=== PATIENT | male | born 1965 | race African-American/Black ===

== ENCOUNTER 2019-12-31 09:51 | Inpatient (IN) ==
[2019-12-31] MEDS ORDERED: GLUCAGON 1 MG VIAL IM PRN (10:19)
[2019-12-31] MEDS ORDERED: DEXTROSE 10% 250 ML BAG IV PRN (10:19)
[2019-12-31] MEDS ORDERED: ACETAMINOPHEN 325 MG TABLET PO PRN (10:19)
[2019-12-31] MEDS ORDERED: ONDANSETRON 4 MG/2 ML VIAL IV PRN (10:19)
[2019-12-31] MEDS ORDERED: MAGNESIUM HYDROXIDE SUSP 30 ML UDCUP PO PRN (10:19)
[2019-12-31] MEDS ORDERED: MEROPENEM 2,000 MG in SODIUM CHLORIDE 0.9% 100 ML IV SCH (10:30)
[2019-12-31] MEDS: INSULIN REGULAR 100 UNIT/ML SUBCUT SCH ×3 (11:30→20:26)
[2019-12-31 13:45] LABS: Basophils # 0.1 10*3/uL (0.0-0.2); Basophils % 0.4 % (0.0-0.8); Eosinophils # 0.2 10*3/uL (0.0-0.87); Eosinophils % 1.5 % (0.00-10.9); Hematocrit 41.7 VOL% (42.0-52.0); Hemoglobin 13.2 GM/DL (14.0-18.0); Immature Granulocytes % 0.8 %; Immature Granulocytes Absolute 0.11 #; Lymphocytes # 3.3 10*3/uL (1.4-4.0); Lymphocytes % 24.7 % (21.2-54.2); Mean Corpuscular HGB Conc 31.7 GM/DL (32-36); Mean Corpuscular Volume 89.1 FL (87-102); Mean Platelet Volume 9.8 FL (9.6-12.0); Monocytes % 9.9 % (1.7-12.7); Neutrophils % 62.7 % (38.7-73.9); Platelet Count 363 T/CUMM (130-400); Red Blood Count 4.68 MC/CUMM (3.8-5.5); Red Cell Distribution Width 14.7 % (9.3-17.3); White Blood Count 13.2 T/CUMM (4-12)
[2019-12-31 14:02] LABS: Albumin 3.7 G/DL (3.4-5.0); Bilirubin,Total 0.4 MG/DL (0.2-1.0); Calcium 9.1 MG/DL (8.5-10.1); Osmolality,Calculated 284.3 MOS/KG (273-304); Total Protein 8.2 G/DL (6.4-8.3)
[2019-12-31] MEDS: PANTOPRAZOLE 40 MG TABLET PO SCH (16:12)
[2019-12-31 16:40] LABS: Apearance,Urine CLEAR (Clear); Bilirubin,Urine Negative (Negative); Blood, Urine Negative (Negative); Glucose,Urine (UA) Negative (Negative); Ketones,Urine Negative (Negative); Mucus,Urine Occasional /LPF (Occasional); Nitrite,Urine Negative (Negative); Protein,Urine Negative; RBC,Urine <1 /HPF (0-4); Urine Color Yellow (Yellow); Urine Specific Gravity 1.018 (1.001-1.035)
[2019-12-31] MEDS: SODIUM CHLORIDE 0.45% 1,000 ML IV SCH ×2 (17:51→18:30)
[2019-12-31] MEDS: VANCOMYCIN INJ 2,000 MG in SODIUM CHLORIDE 0.9% 500 ML IV SCH (18:01)
[2019-12-31] MEDS: carvediloL 25 MG TABLET PO SCH (18:02)
[2019-12-31] MEDS: ATORVASTATIN 80 MG TABLET PO SCH (20:25)
[2019-12-31] MEDS: DOCUSATE SODIUM 100 MG CAPSULE PO SCH (20:25)
[2019-12-31] MEDS: INSULIN GLARGINE 100 UNIT/ML SUBCUT SCH (20:26)
[2019-12-31] MEDS: MEROPENEM 500 MG in SODIUM CHLORIDE 0.9% 100 ML IV SCH (23:12)
[2020-01-01 05:01] LABS: Basophils # 0.1 10*3/uL (0.0-0.2); Basophils % 0.5 % (0.0-0.8); Eosinophils # 0.3 10*3/uL (0.0-0.87); Eosinophils % 2.4 % (0.00-10.9); Hematocrit 35.6 VOL% (42.0-52.0); Hemoglobin 11.6 GM/DL (14.0-18.0); Immature Granulocytes Absolute 0.13 #; Lymphocytes # 4.3 10*3/uL (1.4-4.0); Lymphocytes % 34.2 % (21.2-54.2); Mean Corpuscular HGB Conc 32.6 GM/DL (32-36); Mean Corpuscular Volume 88.6 FL (87-102); Mean Platelet Volume 9.8 FL (9.6-12.0); Neutrophils % 50.9 % (38.7-73.9); Platelet Count 301 T/CUMM (130-400); Red Blood Count 4.02 MC/CUMM (3.8-5.5); Red Cell Distribution Width 14.7 % (9.3-17.3); White Blood Count 12.4 T/CUMM (4-12)
[2020-01-01] MEDS: MEROPENEM 500 MG in SODIUM CHLORIDE 0.9% 100 ML IV SCH ×3 (05:11→21:12)
[2020-01-01 05:44] LABS: Albumin 2.9 G/DL (3.4-5.0); Bilirubin,Total 0.8 MG/DL (0.2-1.0); Calcium 8.8 MG/DL (8.5-10.1); Osmolality,Calculated 282.3 MOS/KG (273-304); Total Protein 6.7 G/DL (6.4-8.3)
[2020-01-01] MEDS: VANCOMYCIN INJ 2,000 MG in SODIUM CHLORIDE 0.9% 500 ML IV SCH ×2 (06:29→18:24)
[2020-01-01] MEDS ORDERED: LIDOCAINE 1%/EPI INJ 20 ML VIAL MISC INJ ONE (07:14)
[2020-01-01] MEDS: INSULIN GLARGINE 100 UNIT/ML SUBCUT SCH ×2 (08:41→21:12)
[2020-01-01] MEDS: INSULIN REGULAR 100 UNIT/ML SUBCUT SCH ×4 (08:41→21:11)
[2020-01-01] MEDS: carvediloL 25 MG TABLET PO SCH ×2 (08:44→17:32)
[2020-01-01] MEDS: hydroCHLOROthiazide 12.5 MG CAPSULE PO SCH (08:44)
[2020-01-01] MEDS: OLMESARTAN 20 MG TABLET PO SCH (08:44)
[2020-01-01] MEDS: POTASSIUM CHLORIDE 10 MEQ TABLET PO SCH ×2 (08:45→21:11)
[2020-01-01] MEDS: DOCUSATE SODIUM 100 MG CAPSULE PO SCH ×2 (08:45→21:11)
[2020-01-01] MEDS: PANTOPRAZOLE 40 MG TABLET PO SCH (08:45)
[2020-01-01] MEDS: ASPIRIN EC 81 MG TABLET PO SCH (08:45)
[2020-01-01] MEDS: sitaGLIPtin 100 MG TABLET PO SCH (08:45)
[2020-01-01] MEDS: SODIUM CHLOR 0.45% KCL 20 MEQ 20 MEQ/1,000 ML BAG IV SCH ×2 (08:46→16:09)
[2020-01-01] MEDS ORDERED: POTASSIUM CHLORIDE 10 MEQ TABLET PO SCH (09:00)
[2020-01-01] MEDS: SODIUM CHLORIDE 0.45% 1,000 ML IV SCH (19:15)
[2020-01-01] MEDS: ATORVASTATIN 80 MG TABLET PO SCH (21:11)
[2020-01-02] MEDS: SODIUM CHLOR 0.45% KCL 20 MEQ 20 MEQ/1,000 ML BAG IV SCH ×2 (00:32→14:33)
[2020-01-02] MEDS: MEROPENEM 500 MG in SODIUM CHLORIDE 0.9% 100 ML IV SCH ×2 (04:35→11:20)
[2020-01-02 05:25] LABS: Basophils # 0.1 10*3/uL (0.0-0.2); Basophils % 0.6 % (0.0-0.8); Eosinophils # 0.4 10*3/uL (0.0-0.87); Eosinophils % 3.5 % (0.00-10.9); Hematocrit 36.1 VOL% (42.0-52.0); Hemoglobin 11.5 GM/DL (14.0-18.0); Immature Granulocytes % 1.1 %; Immature Granulocytes Absolute 0.13 #; Lymphocytes % 33.2 % (21.2-54.2); Mean Corpuscular HGB Conc 31.9 GM/DL (32-36); Mean Corpuscular Volume 89.6 FL (87-102); Monocytes % 11.6 % (1.7-12.7); Platelet Count 315 T/CUMM (130-400); Red Blood Count 4.03 MC/CUMM (3.8-5.5); Red Cell Distribution Width 14.6 % (9.3-17.3); White Blood Count 12.1 T/CUMM (4-12)
[2020-01-02 05:51] LABS: Calcium 8.6 MG/DL (8.5-10.1); Osmolality,Calculated 282.3 MOS/KG (273-304)
[2020-01-02] MEDS: VANCOMYCIN INJ 2,000 MG in SODIUM CHLORIDE 0.9% 500 ML IV SCH (06:03)
[2020-01-02] MEDS: DOCUSATE SODIUM 100 MG CAPSULE PO SCH (08:53)
[2020-01-02] MEDS: carvediloL 25 MG TABLET PO SCH (08:53)
[2020-01-02] MEDS: OLMESARTAN 20 MG TABLET PO SCH (08:53)
[2020-01-02] MEDS: INSULIN REGULAR 100 UNIT/ML SUBCUT SCH ×2 (08:54→12:12)
[2020-01-02] MEDS: POTASSIUM CHLORIDE 10 MEQ TABLET PO SCH (08:54)
[2020-01-02] MEDS: hydroCHLOROthiazide 12.5 MG CAPSULE PO SCH (08:54)
[2020-01-02] MEDS: PANTOPRAZOLE 40 MG TABLET PO SCH (08:54)
[2020-01-02] MEDS: ASPIRIN EC 81 MG TABLET PO SCH (08:54)
[2020-01-02] MEDS: sitaGLIPtin 100 MG TABLET PO SCH (08:54)
[2020-01-02] MEDS: INSULIN GLARGINE 100 UNIT/ML SUBCUT SCH (08:55)
[2020-01-02] MEDS ORDERED: POTASSIUM CHLORIDE 20 MEQ TABLET PO ONE (10:38)
[2020-01-02 12:59] VITALS: BP 142/57
== END 2020-01-02 14:29 | disposition home or self-care (01) | DRG 580 ==
LOC: N.3E 12:37
PROVIDERS: ADMIT Family Medicine; ATTEND Family Medicine